=== PATIENT | male | born 1955 | race Caucasian/White ===

== ENCOUNTER 2017-01-23 01:19 | Emergency (ER) | payer OTHER ==
[2017-01-23 02:24] VITALS: BP 130/87; PULSE 71; TEMP 97.5; BMI 31.0
--- NOTE | 2017-01-23 02:35 | PDOC ---
History of Present Illness - General History Source: Patient Exam Limitations: No Limitations - History of Present Illness Initial Comments: 01/23/17 03:11 The patient is a 61 year old male with a significant PMH of kidney stones, prostate CA (finished RT 2 months ago), cardiac arrhythmia, HTN, diverticulitis , and polyp removal who presents to the emergency department with worsening abdominal pain beginning approximately 3 days ago. The patient describes the pain as localized in the subumbilical region with no radiation. The patent reports that his abdominal pain feels similar to a previous episode wherein he had a prostate infection. The patient reports that this episode feels different from his kidney stones in the past as he denies dysuria. The patient also reports lower back pain which is aggravated by lying down. He reports taking Tylenol for his abdominal and back pain to minimal relief. The patient denies chest pain, shortness of breath, headache and dizziness. Denies fever, chills, nausea, vomit, diarrhea and constipation. Denies dysuria, frequency, urgency and hematuria. Allergies: NKA Past surgical history: Polyp removal. Social history: No reported cigarette, alcohol, or drug use. PCP: Dr. Jenkins <Serg Payne - Last Filed: 01/23/17 03:24> <Lelia Pro - Last Filed: 01/23/17 05:38> - General Chief Complaint: Pain, Acute Stated Complaint: ABD/BACK PAIN Time Seen by Provider: 01/23/17 02:35 Past History <Serg Payne - Last Filed: 01/23/17 03:24> - Past Medical History Anemia: No Asthma: No Cancer: No Cardiac Disorders: Yes (arrhythmia) CVA: No COPD: No CHF: No Dementia: No Diabetes: No GI Disorders: Yes (DIVERTICULITIS) Disorders: Yes (kidney stones, BPH) HTN: Yes Hypercholesterolemia: Yes Liver Disease: No Seizures: No Thyroid Disease: No - Surgical History Abdominal Surgery: No Appendectomy: No Cardiac Surgery: No Cholecystectomy: No Lung Surgery: No Neurologic Surgery: No Orthopedic Surgery: No - Immunization History Immunization Up to Date: Yes - Suicide/Smoking/Psychosocial Hx Smoking History: Never smoked Have you smoked in the past 12 months: No Information on smoking cessation initiated: No Hx Alcohol Use: No Drug/Substance Use Hx: No Substance Use Type: None Hx Substance Use Treatment: No <Lelia Pro - Last Filed: 01/23/17 05:38> - Past Medical History Allergies/Adverse Reactions: Allergies Allergy/AdvReac Type Severity Reaction Status Date / Time No Known Allergies Allergy Verified 01/23/17 02:20 Home Medications: Ambulatory Orders Aspirin [Aspirin EC] 325 mg PO DAILY 11/06/14 Cyclobenzaprine HCl [Flexeril] 5 mg PO TID #15 tablet 11/06/14 Ibuprofen [Motrin -] 400 mg PO QID PRN #28 tablet 11/06/14 Losartan Potassium 100 mg PO DAILY 11/06/14 Losartan Potassium 100 mg PO DAILY #30 tablet 06/30/15 Metoprolol Tartrate [Lopressor -] 25 mg PO BID #60 tablet 06/30/15 Ibuprofen [Motrin -] 600 mg PO TID PRN #21 tablet 01/23/17 Tamsulosin HCl [Flomax] 0.4 mg PO HS #14 cap.er.24h 01/23/17 Review of Systems - Review of Systems Able to Perform ROS?: Yes Comments:: 01/23/17 03:11 GENERAL/CONSTITUTIONAL: No fever or chills. No weakness. HEAD, EYES, EARS, NOSE AND THROAT: No change in vision. No ear pain or discharge. No sore throat. CARDIOVASCULAR: No chest pain or shortness of breath. RESPIRATORY: No cough, wheezing, or hemoptysis. GASTROINTESTINAL: (+) Subumbilical abdominal pain. No nausea, vomiting, diarrhea or constipation. GENITOURINARY: No dysuria, frequency, or change in urination. MUSCULOSKELETAL: (+) Lower back pain. No joint pain. No neck pain. SKIN: No rash NEUROLOGIC: No headache, vertigo, loss of consciousness, or change in strength/ sensation. ENDOCRINE: No increased thirst. No abnormal weight change. HEMATOLOGIC/LYMPHATIC: No anemia, easy bleeding, or history of blood clots. ALLERGIC/IMMUNOLOGIC: No hives or skin allergy. <Serg Payne - Last Filed: 01/23/17 03:24> *Physical Exam - Vital Signs Last Vital Signs Temp Pulse Resp BP Pulse Ox 97.5 F L 71 14 130/87 97 01/23/17 02:21 01/23/17 02:21 01/23/17 02:21 01/23/17 02:21 01/23/17 02:21 <Serg Payne - Last Filed: 01/23/17 03:24> - Vital Signs Last Vital Signs Temp Pulse Resp BP Pulse Ox 97.5 F L 71 14 130/87 97 01/23/17 02:21 01/23/17 02:21 01/23/17 02:21 01/23/17 02:21 01/23/17 02:21 - Physical Exam Comments: GENERAL: Awake, alert, and fully oriented, in no acute distress HEAD: No signs of trauma EYES: PERRLA, EOMI, sclera anicteric, conjunctiva clear ENT: Auricles normal inspection, hearing grossly normal, nares patent, oropharynx clear without exudates. Moist mucosa NECK: Normal ROM, supple, no lymphadenopathy, JVD, or masses LUNGS: Breath sounds equal, clear to auscultation bilaterally. No wheezes, and no crackles HEART: Regular rate and rhythm, normal S1 and S2, no murmurs, rubs or gallops ABDOMEN: Soft, +suprapubic tenderness, normoactive bowel sounds. No guarding, no rebound. No masses. No CVAT. EXTREMITIES: Normal range of motion, no edema. No clubbing or cyanosis. No cords, erythema, or tenderness NEUROLOGICAL: Cranial nerves II through XII grossly intact. Normal speech, normal gait SKIN: Warm, Dry, normal turgor, no rashes or lesions noted. <Lelia Pro - Last Filed: 01/23/17 05:38> Medical Decision Making - Medical Decision Making 01/23/17 04:55 Results d/w patient. Small R kidney stone. No signs of UTI on UA. Will prescribe motrin and flomax. Stable for DC home. <Lelia Pro - Last Filed: 01/23/17 05:38> *DC/Admit/Observation/Transfer - Attestations Scribe Attestion: 01/23/17 03:24 Documentation prepared by Serg Payne, acting as medical claims representative for Lelia Pro MD. <Serg Payne - Last Filed: 01/23/17 03:24> - Discharge Dispostion Admit: No <Lelia Pro - Last Filed: 01/23/17 05:38> Diagnosis at time of Disposition: Kidney stone on right side - Discharge Dispostion Disposition: HOME Condition at time of disposition: Stable - Prescriptions Prescriptions: Ibuprofen [Motrin -] 600 mg PO TID PRN #21 tablet PRN Reason: Pain Tamsulosin HCl [Flomax] 0.4 mg PO HS #14 cap.er.24h - Referrals Referrals: Ezequiel Jenkins MD [Primary Care Provider] - - Patient Instructions Printed Discharge Instructions: DI for Kidney Stones - Post Discharge Activity Forms/Work/School Notes: Back to Work
[2017-01-23 03:03] LABS: URINE APPEARANCE CLEAR; URINE BILIRUBIN NEGATIVE (NEGATIVE); URINE BLOOD NEGATIVE (NEGATIVE); URINE COLOR LTYELLOW; URINE GLUCOSE (UA) NEGATIVE (NEGATIVE); URINE KETONE NEGATIVE (NEGATIVE); URINE NITRITE NEGATIVE (NEGATIVE); URINE PROTEIN NEGATIVE (NEGATIVE); URINE UROBILINOGEN NEGATIVE mg/dL (0.2-1.0)
[2017-01-23] MEDS ORDERED: IBUPROFEN 600 MG TABLET (FP) PO ONE ×2 (03:10→04:29)
[2017-01-23 10:51] LABS: URINE LEUK ESTERASE Negative (NEGATIVE)
== END 2017-01-23 05:01 | disposition home or self-care (01) ==
LOC: JER 01:19
DX: N20.0 Calculus of kidney (principal); Z87.442 Personal history of urinary calculi; I10 Essential (primary) hypertension; I49.8 Other specified cardiac arrhythmias; Z85.46 Personal history of malignant neoplasm of prostate
CPT/HCPCS: 74176; 81003; 87086; 99281-25

== ENCOUNTER 2019-08-20 20:00 | Observation (INO) | payer OTHER ==
--- NOTE | 2019-08-20 20:13 | PDOC ---
Rapid Medical Evaluation Chief Complaint: Palpitations Time Seen by Provider: 08/20/19 20:09 Medical Evaluation: Allergies Allergy/AdvReac Type Severity Reaction Status Date / Time No Known Allergies Allergy Verified 01/23/17 02:20 08/20/19 20:09 63 year old male pmhx of arrythmia, HTN, HLD pre DM presenting with palpitations since this AM. Pt states palpitations come and go and last a few minutes. Denies CP, SOB, syncope, pre syncope , N/V/D, F/C PE CTA RRR Plan: EKG at triage NSR with PVCs Cardiac and basic labs CX Pt to precede to ED
[2019-08-20 20:20] VITALS: BMI 33.5
[2019-08-20 21:18] LABS: BASO % 0.6 % (0-2.0); EOS % 3.7 % (0-4.5); HEMATOCRIT 49.4 % (35.4-49); HEMOGLOBIN 16.3 GM/dL (11.7-16.9); LYMPH % 29.3 % (8-40); MCH 31.1 pg (25.7-33.7); MCHC 33.1 g/dl (32.0-35.9); MEAN CELL VOLUME 93.9 fl (80-96); MEAN PLT VOLUME 9.4 fl (7.5-11.1); MONO % 14.1 % (3.8-10.2); NEUT % 52.3 % (42.8-82.8); PLATELET COUNT 185 K/MM3 (134-434); RBC 5.26 M/mm3 (4.00-5.60); RDW 14.5 % (11.9-15.9); WHITE BLOOD COUNT 7.3 K/mm3 (4.0-10.0)
--- NOTE | 2019-08-20 21:19 | PDOC ---
History of Present Illness - General Chief Complaint: Palpitations Stated Complaint: PALPITATIONS/HBP Time Seen by Provider: 08/20/19 20:09 - History of Present Illness Initial Comments: The pt is a 63M w/ a history of HTN, HLD, and an 'arrhythmia' who presents for evaluation of 2 days of palpitations. The pt reports intermittent palpitations that are worse with exertion and resolve spontaneously for 2 days. The pt has not had this happen before. He endorses intermittent chest pressure with his palpitations but does not currently have palpitations or pressure. Last was this afternoon. Denies fevers/chills, LOPEZ, vision changes, SOB, abdominal pain, N/V, dysuria, hematuria, rash 08/20/19 21:18 Past History - Medical History Allergies/Adverse Reactions: Allergies Allergy/AdvReac Type Severity Reaction Status Date / Time No Known Allergies Allergy Verified 01/23/17 02:20 Home Medications: Ambulatory Orders Aspirin 81 mg PO DAILY 08/20/19 Atorvastatin Ca [Lipitor] 10 mg PO HS 08/20/19 Losartan/Hydrochlorothiazide [Losartan-Hctz 100-12.5 mg Tab] 1 tablet PO DAILY 08/20/19 Cardiac Disorders: Yes (arrhythmia) GI Disorders: Yes (DIVERTICULITIS) Disorders: Yes (kidney stones, BPH) HTN: Yes Hypercholesterolemia: Yes - Substance Abuse Hx (Audit-C & DAST Scrn) Score: In Men: 4 or > Positive; In Women: 3 or > Positive: 2 Screen Result (Pos requires Nsg. Audit-10AR): Negative Score: Yes response is considered Positive: 0 Screen Result (Positive result requires Nsg. DAST-10): Negative Review of Systems - Review of Systems Able to Perform ROS?: Yes Comments:: GENERAL/CONSTITUTIONAL: No fever or chills. No weakness HEAD, EYES, EARS, NOSE AND THROAT: No change in vision. No change in hearing. No sore throat CARDIOVASCULAR: No shortness of breath RESPIRATORY: Denies cough, hemoptysis GASTROINTESTINAL: No nausea, vomiting, diarrhea or constipation GENITOURINARY: No dysuria, frequency, or change in urination MUSCULOSKELETAL: No joint or muscle swelling or pain. No neck or back pain SKIN: No rash NEUROLOGIC: No headache, vertigo, loss of consciousness, or change in str ength/sensation ENDOCRINE: No increased thirst. No abnormal weight change HEMATOLOGIC/LYMPHATIC: No anemia, easy bleeding, or history of blood clots ALLERGIC/IMMUNOLOGIC: No hives or skin allergy 08/20/19 21:33 Is the patient limited Ukrainian proficient: No *Physical Exam - Vital Signs Last Vital Signs Temp Pulse Resp BP Pulse Ox 98.5 F 95 H 20 141/95 98 08/20/19 20:08 08/20/19 20:08 08/20/19 20:08 08/20/19 20:08 08/20/19 20:08 - Physical Exam GENERAL: Awake, alert, and oriented to person/place/time, in no acute distress HEAD: No signs of trauma, normocephalic, atraumatic EYES: PERRLA, EOMI, sclera anicteric, conjunctiva clear ENT: Hearing grossly normal, nares patent, oropharynx clear without exudates. Moist mucosa LUNGS: No distress, speaks in full sentences, clear to auscultation bilaterally HEART: Regular rate and rhythm, normal S1 and S2, no murmurs appreciated, peripheral pulses normal and equal bilaterally ABDOMEN: Soft, protuberant, nontender, normoactive bowel sounds. No guarding, no rebound EXTREMITIES: Normal inspection, Normal range of motion, no edema. No clubbing or cyanosis NEUROLOGICAL: Cranial nerves II through XII grossly intact. Normal speech, no focal sensorimotor deficits SKIN: Warm, Dry 08/20/19 21:33 ED Treatment Course - LABORATORY CBC & Chemistry Diagram: 08/20/19 21:03 08/20/19 21:03 Medical Decision Making - Medical Decision Making The pt is a 63M w/ a history of HTN, HLD, and an 'arrhythmia' who presents for evaluation of 2 days of palpitations Ddx: ACS; thyroid dysfunction; anxiety; not likely ingestion ED Course CMP, CBC, Trop, TSH CXR ECG 1L LR IV once ECG w/ sinus arrhythmia, HR 82; QTc 455; no axis deviation; no acute ischemic changes No leukcytosis No anemia Lytes overall unremarkable No ZACHARY Trop I neg TSH wnl CXR w/o focal infiltrate Pt with history of HTN, HLD, age 63 with palpitations and chest pressure Will admit for Tele obs for ACS 08/21/19 03:14 Discharge - Discharge Information Problems reviewed: Yes Clinical Impression/Diagnosis: Palpitations Chest pain Qualifiers: Chest pain type: unspecified Qualified Code(s): R07.9 - Chest pain, unspecified Condition: Good - Admission Yes - Follow up/Referral - Patient Discharge Instructions - Post Discharge Activity
[2019-08-20 21:26] LABS: INR 0.91 (0.83-1.09); PROTHROMBIN TIME (PATIENT) 10.7 SEC (9.7-13.0)
[2019-08-20 21:29] LABS: ACTIVATED PTT 37.5 SECONDS (25.2-36.5)
[2019-08-20 22:00] LABS: ALK PHOS 106 U/L (45-117); ANION GAP 10 MMOL/L (8-16); BILIRUBIN,TOTAL 0.6 mg/dL (0.2-1); BLOOD UREA NITROGEN 19.1 mg/dL (7-18); CALCIUM 9.3 mg/dL (8.5-10.1); CHLORIDE 105 mmol/L (98-107); CO2 24 mmol/L (21-32); CREATININE 1.1 mg/dL (0.55-1.3); GLUCOSE,RANDOM 114 mg/dL (74-106); MAGNESIUM 2.3 mg/dL (1.8-2.4); N-TERMINAL BNP 11.3 pg/ml (5-125); POTASSIUM 3.8 mmol/L (3.5-5.1); SGOT/AST 49 U/L (15-37); SGPT/ALT 76 U/L (13-61); SODIUM 140 mmol/L (136-145); TOT PROT 7.3 g/dl (6.4-8.2)
[2019-08-20] MEDS ORDERED: LACTATED RINGERS SOLUTION 1000 ML INFUS.BAG IV ONE (22:32)
--- NOTE | 2019-08-20 22:50 | PN ---
Teaching Attending Note Name of Resident: Jozef Trevino ATTENDING PHYSICIAN STATEMENT I saw and evaluated the patient. I reviewed the resident's note and discussed the case with the resident. I agree with the resident's findings and plan as documented. SUBJECTIVE: Patient is a 63 year old [place] with a PMH of Unspecified arrhythmia, HTN, BPH, P rostate cancer, Obstructive sleep apnea (on CPAP), HLD and Prediabetes who presents to the ER with palpitations for two days. Patient stated the palpitations along with associated chest pressure are intermittent - only lasting for a few minutes at a time, and are worse upon exertion. Patient stated he is not currently experiencing palpitations or chest pressure - last episode was this afternoon. Usually does 10K walks daily, but did 20K walk today. Patient denies fever, chills, vision changes, SOB, abdominal pain, syncope, presyncope, nausea, vomiting, diarrhea, dysuria, hematuria or rash. Drinks ?2-3 glasses of wine daily with his meals. Denies tobacco or illicit drug use. No sick contacts or recent travels. Family history is unremarkable. OBJECTIVE: Alert Vital Signs Period Temp Pulse Resp BP Sys/Tucker Pulse Ox Last 24 Hr 98.5 F 95 20 141/95 98 HEENT: No Jaundice, eye redness or discharge, PERRLA, EOMI. Normocephalic, atraumatic. External ears are normal and hearing is grossly intact. No nasal discharge. Neck: Supple, nontender. No palpable adenopathy or thyromegaly. No JVD Chest: Good effort. Clear to auscultation and percussion. Heart: Regular. No S3, rub or murmur Abdomen: Not distended, soft, nontender and no HSM. No rebound or guarding. Normal bowel sounds. Ext: Peripheral pulses intact. No leg edema. Skin: Warm and dry. No petechiae, rash or ecchymosis. Neuro: Alert. Oriented x3. CN 2-12 grossly intact. Sensation grossly intact in all four extremities and DTR are symmetric. Psych: Appropriate mood and affect. Good insight. Home Medications Medication Instructions Recorded Aspirin [Aspirin EC] 325 mg PO DAILY 11/06/14 Cyclobenzaprine HCl [Flexeril] 5 mg PO TID #15 tablet 11/06/14 Ibuprofen [Motrin -] 400 mg PO QID PRN #28 tablet 11/06/14 Losartan Potassium 100 mg PO DAILY 11/06/14 Losartan Potassium 100 mg PO DAILY #30 tablet 06/30/15 Metoprolol Tartrate [Lopressor -] 25 mg PO BID #60 tablet 06/30/15 Ibuprofen [Motrin -] 600 mg PO TID PRN #21 tablet 01/23/17 Tamsulosin HCl [Flomax] 0.4 mg PO HS #14 cap.er.24h 01/23/17 Abnormal Lab Results 08/20/19 08/20/19 08/20/19 21:03 21:03 21:03 Hct 49.4 H Monocytes % 14.1 H PTT (Actin FS) 37.5 H BUN 19.1 H Random Glucose 114 H AST 49 H ALT 76 H Creatine Kinase 347 H Current Medications Generic Name Dose Route Start Last Admin Trade Name Freq PRN Reason Stop Dose Admin Enoxaparin Sodium 40 mg 08/21/19 10:00 Lovenox - SQ DAILY MITCHEL Sodium Chloride 1,000 mls @ 100 mls/hr 08/21/19 00:15 Normal Saline - IV ASDIR MITCHEL ASSESSMENT AND PLAN: 1. Rule out ACS - Has risk factors for ACS. Etiology of palpitations unclear. Increasing his daily walks from 10K to 20K on a day with outside temperatures close to 90o F may have contributed to his symptoms. May be dehydrated with mild rhabdomyolysis and erythrocytosis - ?heat stroke. EKG shows sinus arrhythmia at 82/minute and QTc [address]-T wave changes. Initial troponin is negative. No acute abnormality on CXR. Will admit to telemetry, get urinalysis, trend troponin, get ECHO, urine toxicology, fasting lipids, treat with IV NS, trend CPK and consult Cardiology. Patient counseled to avoid intensive physical activity when it is very hot outside. Viral testing for COVID-19 ordered and patient placed on airborne, droplet and contact isolation. Will continue comprehensive care for all of patients comorbid conditions including Flomax for BPH. 2. Prediabetes - Will implement sliding scale insulin regimen. Provide comprehensive diabetes care with patient teaching and counseling about the importance of adherence to prescribed diabetes regimen, euglycemia, eye care and foot care. 3. Hypertension Will restart suitable outpatient antihypertensive drugs when clinically appropriate. Subsequently, will revise regimen to ensure [id number] excellent BP control. Patient counseled on the injurious effects of uncontrolled hypertension. Nonpharmacologic measures to control hypertension like weight loss, salt restriction and exercise stressed. Importance of adherence to treatment regimen and attainment of normotension emphasized. 4. Obesity Counseled on the risks associated with obesity. Will provide patient all the necessary assistance, counseling and positive reinforcement to facilitate weight loss. Consult american board certified orthotist. 5. DVT prophylaxis - Lovenox 40 mg SQ q 24 hours. 6. Advance directives - Full code
--- NOTE | 2019-08-20 23:35 | HP ---
CHIEF COMPLAINT: palpitations PCP: Sandoval HISTORY OF PRESENT ILLNESS: 63M w/ pmh of HTN, HLD, pre-DM, arrhythmias(dx 4ys prior), PILI(nightly CPAP), prostate Ca(s/p RT, 3ys pior) presents to [facility] for complaint of "irregular heart" that feelings like it's "speeding up". First occurrence of chest palpitations occurred the day prior to admission, after a 20k morning walk. Normally walks 10k daily. Sensation lasted 20mins and resolved spontaneously. He attributed it to the heat. Had recurrence today in the afternoon, while at rest. Took his BP at home and saw SBP ~170s and reading of "abnormal" rate. Sensation resolved after 10mins. Decided to get evaluated in the ED. Has been diagnosed w/ an unspecified arrhythmia 4ys ago. Was told to take ASA 81mg daily. Drinks a "few" glasses of wine with meals(lunch, dinner) since he was ~21y/o, which he states is normal for his culture([place]). Denies excessive caffeine usage, drinking only decaf occasionally. No new life stressors. Retired 3mo ago from [employer]. was vacatioining in [place] and blocked from [place] d/t the ongoing COVID pandemic. Has been social distancing. ER course was notable for: (1) LR 1L (2) EKG: sinus rhytm w/ frequent PVCs, no ST elevations/depressions, QTc 455 (3) HEART 4 (4) troponin neg x1 Recent Travel: denies. Was going to see the world after [facility], but COVID PAST MEDICAL HISTORY: as above PAST SURGICAL HISTORY: Right elbow surgery Social History: Smoking: denies Alcohol: 2glasses wine w/ meals(lunch, dinner) Drugs: denies Allergies No Known Allergies Allergy (Verified 01/23/17 02:20) HOME MEDICATIONS: Home Medications Medication Instructions Recorded Aspirin 81 mg PO DAILY 08/20/19 Atorvastatin Ca [Lipitor] 10 mg PO HS 08/20/19 Losartan/Hydrochlorothiazide 1 tablet PO DAILY 08/20/19 [Losartan-Hctz 100-12.5 mg Tab] REVIEW OF SYSTEMS CONSTITUTIONAL: Absent: fever, chills, diaphoresis, generalized weakness, malaise, loss of appetite, weight change HEENT: Absent: rhinorrhea, nasal congestion, throat pain, throat swelling, difficulty swallowing, mouth swelling, ear pain, eye pain, visual changes CARDIOVASCULAR: palpitations, irregular heart rate Absent: chest pain, syncope, lightheadedness, peripheral edema RESPIRATORY: Absent: cough, shortness of breath, dyspnea with exertion, orthopnea, wheezing, stridor, hemoptysis GASTROINTESTINAL: Absent: abdominal pain, abdominal distension, nausea, vomiting, diarrhea, constipation, melena, hematochezia GENITOURINARY: Absent: dysuria, frequency, urgency, hesitancy, hematuria, flank pain, genital pain MUSCULOSKELETAL: Absent: myalgia, arthralgia, joint swelling, back pain, neck pain SKIN: Absent: rash, itching, pallor HEMATOLOGIC/IMMUNOLOGIC: Absent: easy bleeding, easy bruising, lymphadenopathy, frequent infections ENDOCRINE: Absent: unexplained weight gain, unexplained weight loss, heat intolerance, cold intolerance NEUROLOGIC: Absent: headache, focal weakness or paresthesias, dizziness, unsteady gait, seizure, mental status changes, bladder or bowel incontinence PSYCHIATRIC: Absent: anxiety, depression, suicidal or homicidal ideation, hallucinations. PHYSICAL EXAMINATION Vital Signs - 24 hr 08/20/19 20:08 Temperature 98.5 F Pulse Rate 95 H Respiratory 20 Rate Blood Pressure 141/95 O2 Sat by Pulse 98 Oximetry (%) GENERAL: Awake, alert, and fully oriented, in no acute distress. Pleasant HEAD: NC/AT EYES: sclera anicteric, conjunctiva clear. EARS, NOSE, THROAT: Moist mucous membranes. NECK: supple without lymphadenopathy, JVD, or masses. LUNGS: Breath sounds equal, clear to auscultation bilaterally. No wheezes, and no crackles. No accessory muscle use. HEART: Regular rate and rhythm, normal S1 and S2 without murmur, rub or gallop. ABDOMEN: Soft, nontender, not distended, no guarding, no rebound MUSCULOSKELETAL: Normal range of motion at all joints. No bony deformities or tenderness. UPPER EXTREMITIES: 2+ pulses, warm, well-perfused. No cyanosis. No clubbing. No peripheral edema. LOWER EXTREMITIES: 2+ pulses, warm, well-perfused. No calf tenderness. No peripheral edema. NEUROLOGICAL: Normal speech. Moving all extremities spontaneously Laboratory Results - last 24 hr 08/20/19 08/20/19 08/20/19 21:03 21:03 21:03 WBC 7.3 RBC 5.26 Hgb 16.3 Hct 49.4 H MCV 93.9 MCH 31.1 MCHC 33.1 RDW 14.5 Plt Count 185 MPV 9.4 Absolute Neuts (auto) 3.8 Neutrophils % 52.3 Lymphocytes % 29.3 Monocytes % 14.1 H Eosinophils % 3.7 Basophils % 0.6 Nucleated RBC % 0 PT with INR 10.70 INR 0.91 PTT (Actin FS) 37.5 H Sodium 140 Potassium 3.8 Chloride 105 Carbon Dioxide 24 Anion Gap 10 BUN 19.1 H Creatinine 1.1 Est GFR (CKD-EPI)AfAm 82.95 Est GFR (CKD-EPI)NonAf 71.57 Random Glucose 114 H Calcium 9.3 Magnesium 2.3 Total Bilirubin 0.6 AST 49 H ALT 76 H Alkaline Phosphatase 106 Creatine Kinase 347 H Creatine Kinase Index 0.4 CK-MB (CK-2) 1.6 Troponin I < 0.02 B-Natriuretic Peptide 11.3 Total Protein 7.3 Albumin 4.0 TSH 1.81 ASSESSMENT/PLAN: 63M w/ pmh of HTN, HLD, pre-DM, arrhythmias(dx 4ys prior), PILI(nightly CPAP), prostate Ca(s/p RT, 3ys pior) presents to [facility] for complaint of "irregular heart" that feelings like it's "speeding up". Admitted for symptomatic PVCs, ACS r/o. #h/o "arrhythmias" #symptomatic PVCs --nonsustained ---possibly 2/2 to chronic EtOH usage, Right heart path 2/2 PILI, recent incr in physical activity during heatwave #ACS r/o --low likelihood for ACS > EKG: sinus rhytm w/ frequent PVCs, no ST elevations/depressions, QTc 455 > troponing neg x1 --rpt troponin > Echo --pending - tele monitoring - cw ASA - cardio consult(Gitig): --recs pending #chronic HTN -cw losartan 100 -cw HCTZ 12.5mg #chronic HLD -cw atorvastatin 10mg HS #PILI - cw CPAP HS(?8mmHg) #pre-DM > HbA1c --pending - BGM ACBK FEN - NPO, incase of stress test - NS @100 DVT PPX - lovenox Family Medical History Other Family History: uncle with [place] Visit type - Emergency Visit Emergency Visit: Yes ED Registration Date: 08/20/19 Care time: The patient presented to the Emergency Department on the above date and was hospitalized for further evaluation of their emergent condition. - New Patient This patient is new to me today: Yes Date on this admission: 08/21/19 - Critical Care Critical Care patient: No ATTENDING PHYSICIAN STATEMENT I saw and evaluated the patient. I reviewed the resident's note and discussed the case with the resident. I agree with the resident's findings and plan as documented. SUBJECTIVE: OBJECTIVE: ASSESSMENT AND PLAN:
[2019-08-21] MEDS ORDERED: SODIUM CHLORIDE 1,000 ML IV SCH (00:15)
--- NOTE | 2019-08-21 00:56 | PDOC ---
Documentation entered by Alile Steele SCRIBE, acting as scribe for Kaya Ruiz MD. Kaya Ruiz MD: This documentation has been prepared by the Cedric turner Ana, SCRIBE, under my direction and personally reviewed by me in its entirety. I confirm that the documentation accurately reflects all work, treatment, procedures, and medical decision making performed by me. Attending Attestation - Resident Resident Name: SuhailsathyaSolomon - ED Attending Attestation I have performed the following: I have examined & evaluated the patient, The case was reviewed & discussed with the resident, I agree w/resident's findings & plan, Exceptions are as noted - HPI HPI: 08/20/19 20:57 Patient is a 63 year old male with a significant past medical history of arrythmia, HTN, HLD, and pre DM who presents to the ED with palpitations x2 days. Patient stated the palpitations along with associated chest pressure are intermittent, only last for a few minutes at a time, and are worse upon exertion. Patient stated he is not currently experiencing palpitations or chest pressure - last episode was this afternoon. no leg swelling or edema. no ho pe or dvt. Patient denies fever, chills, vision changes, SOB, abdominal pain, syncope, pre syncope, N/V/D, Allergies: NKDA 08/21/19 00:44 - Physicial Exam PE: 08/21/19 00:46 awake alert lungs clear bilat heart rrr no mrg abd soft nt nd ext wwp. no edema. no calf tenderness. alert oriented x 3. - Medical Decision Making 08/21/19 00:48 63 yo male h/o htn hld pre diabetic here with palpitations and chest pain. differential electrolyte abnormality, angina, mi, dysrhythmia, plan cxr labs ekg ekg with occasional irregular beat. no st elevation or depression cxr no acute disease process occas pvc. 08/21/19 00:54 trop negative. mild lft elevation. Heart Score/ECG Review #1 General ECG Interpretation: Sinus Rhythm, Normal Rate (82), Normal Intervals, No acute ischemic changes Discharge - Discharge Information Problems reviewed: Yes Clinical Impression/Diagnosis: Palpitations, Chest pain - Follow up/Referral - Patient Discharge Instructions - Post Discharge Activity
[2019-08-21 03:47] LABS: PH,URINE 5.5 (5.0-8.0); URINE APPEARANCE CLEAR; URINE BILIRUBIN NEGATIVE (NEGATIVE); URINE COLOR YELLOW; URINE GLUCOSE (UA) NEGATIVE (NEGATIVE); URINE KETONE NEGATIVE (NEGATIVE); URINE LEUK ESTERASE NEGATIVE (NEGATIVE); URINE NITRITE NEGATIVE (NEGATIVE); URINE PROTEIN NEGATIVE (NEGATIVE); URINE UROBILINOGEN 0.2 mg/dL (0.2-1.0)
[2019-08-21 08:09] LABS: HEMATOCRIT 48.2 % (35.4-49); HEMOGLOBIN 16.1 GM/dL (11.7-16.9); MCH 31.2 pg (25.7-33.7); MCHC 33.4 g/dl (32.0-35.9); MEAN CELL VOLUME 93.3 fl (80-96); MEAN PLT VOLUME 9.2 fl (7.5-11.1); PLATELET COUNT 191 K/MM3 (134-434); RBC 5.16 M/mm3 (4.00-5.60); RDW 14.9 % (11.9-15.9); WHITE BLOOD COUNT 6.6 K/mm3 (4.0-10.0)
[2019-08-21 08:23] LABS: BLOOD UREA NITROGEN 14.7 mg/dL (7-18); CALCIUM 9.1 mg/dL (8.5-10.1); CREATININE 0.9 mg/dL (0.55-1.3); MAGNESIUM 2.4 mg/dL (1.8-2.4); PHOSPHOROUS 3.4 mg/dL (2.5-4.9); POTASSIUM 4.2 mmol/L (3.5-5.1)
[2019-08-21] MEDS ORDERED: ENOXAPARIN NA (PORCINE) 40 MG/0.4 ML DISP.SYRIN SQ ONE (09:12)
[2019-08-21] MEDS ORDERED: ASPIRIN 81 MG CHEWABLE TABLETS ONE (09:12)
[2019-08-21] MEDS ORDERED: LOSARTAN POTASSIUM 50 MG TABLET (FP) ONE (09:12)
[2019-08-21] MEDS ORDERED: ENOXAPARIN NA (PORCINE) 40 MG/0.4 ML DISP.SYRIN SQ SCH (10:00)
[2019-08-21] MEDS ORDERED: ASPIRIN 81 MG CHEWABLE TABLETS PO SCH (10:00)
[2019-08-21] MEDS ORDERED: HYDROCHLOROTHIAZIDE 12.5 MG CAPSULE (FP) PO SCH (10:00)
[2019-08-21] MEDS ORDERED: LOSARTAN POTASSIUM 50 MG TABLET (FP) PO SCH (10:00)
--- NOTE | 2019-08-21 11:59 | EKG ---
Test Reason : Blood Pressure : / mmHG Vent. Rate : 082 BPM Atrial Rate : 082 BPM P-R Int : 172 ms QRS Dur : 098 ms QT Int : 390 ms P-R-T Axes : 050 023 032 degrees QTc Int : 455 ms SINUS RHYTHM WITH FREQUENT PREMATURE VENTRICULAR COMPLEXES OTHERWISE NORMAL ECG WHEN COMPARED WITH ECG OF 30-JUN-2015 11:29, PREMATURE VENTRICULAR COMPLEXES ARE NOW PRESENT QT HAS LENGTHENED Confirmed by MINESH BAUTISTA, ERIN ([id number]) on 08/21/2019 11:58:47 AM Referred By: Confirmed By:ERIN EDGE MD
[2019-08-21 12:13] LABS: ALBUMIN 3.8 g/dl (3.4-5.0); BILIRUBIN,DIRECT 0.2 mg/dL (0.0-0.2); BILIRUBIN,TOTAL 0.9 mg/dL (0.2-1)
--- NOTE | 2019-08-21 13:16 | PN ---
Teaching Attending Note Name of Resident: Lexus Washington ATTENDING PHYSICIAN STATEMENT I saw and evaluated the patient. I reviewed the resident's note and discussed the case with the resident. I agree with the resident's findings and plan as documented. SUBJECTIVE: He declines any pain in chest right now. No N/V. NO SOB . He reports, extra walking in the hot weather. He reports palpitations. that are some times associated with chest pressure but no radiation to arm or neck. he reports a stress test 2 months ago. He was told it was Normal OBJECTIVE: NAD , awake , alert, cooperative MMM, was eating . CV: RRR, no MRG Lungs: CTAB Abd: soft, NT, ND , NL BS , obese. Ext : No edema or erythema . ASSESSMENT AND PLAN: 63 y/o man with h/o PILI, on CPAP, pre-Dm, arrhythmias, HTN, BPH, and prostate cancer who presented with palpitations . 1- Palpitations : ? sinus tachycardia VS arrhytmias volume depletion could be playing a role. EKG with sinus rhythm, with PVC. I doubt ACS. he has h/o Arrhythmias but he does not know what kind. - cont tele - Give IVF. - will try to obtain Stress test results - echo pending - Chest pain resolved 2- volume depletion /prerenal azotemia, /possible heat stroke./ possible mild rhabdo - cont IVF . BUN improved 3- Transaminitis: likely has fatty liver, and now with mild rhabdo LFTs are elevated . trended down . No abd pain or tenderness. - monitor . 4- H/o PILI. - will add his CPAP with a pressure of 8 dispo : if no events on tele by am, can dc .
--- NOTE | 2019-08-21 14:04 | ECHO ---
Name: MAHAD ALMONTE Exam:Adult Echocardiogram Study Date: 08/21/2019 11:45 AM Age: 63 yrs Reason For Study: r/o ACS Height: 69 in Weight: 227 lb BSA: 2.2 m2 MMode/2D Measurements & Calculations RVDd: 4.3 cm Ao root diam: 3.6 cm IVSd: 0.78 cm LA dimension: 3.5 cm LVIDd: 4.8 cm ACS: 1.8 cm LVIDs: 3.4 cm LVPWd: 0.87 cm EDV(Teich): 109.8 ml LVOT diam: 2.0 cm ESV(Teich): 47.6 ml LAV (MOD-bp): 40.0 ml TAPSE: 2.1 cm RV S Harry: 12.5 cm/sec Doppler Measurements & Calculations MV E max harry: 56.3 cm/sec Ao V2 max: 130.3 cm/sec MV A max harry: 65.6 cm/sec Ao max P.8 mmHg MV E/A: 0.86 Ao V2 mean: 88.4 cm/sec MV dec time: 0.22 sec Ao mean P.5 mmHg Ao V2 VTI: 23.0 cm KELSEY(I,D): 2.4 cm2 KELSEY(V,D): 2.1 cm2 LV V1 max P.3 mmHg SV(LVOT): 54.6 ml LV V1 mean P.6 mmHg LV V1 max: 90.8 cm/sec LV V1 mean: 56.1 cm/sec LV V1 VTI: 18.0 cm TR max harry: 226.7 cm/sec PA V2 max: 118.1 cm/sec TR max P.6 mmHg PA max P.6 mmHg PA acc slope: 537.4 cm/sec2 PA acc time: 0.15 sec Med Peak E' Harry: 5.8 cm/sec PA pr(Accel): 12.5 mmHg Med E/e': 9.8 Lat Peak E' Harry: 9.5 cm/sec Lat E/e': 6.0 Pulm Sys Harry: 49.8 cm/sec Pulm Tucker Harry: 33.8 cm/sec Pulm S/D: 1.5 Tech Comments TDS due to body habitus. Procedure A complete two-dimensional transthoracic echocardiogram was performed (2D, M-mode, Doppler and color flow Doppler). Left Ventricle The left ventricular size, thickness and function are normal. Ejection Fraction = 60-65%. The left ve ntricular wall motion is normal. Right Ventricle The right ventricle is normal in size and function. Atria Normal left and right atrial size and function. Mitral Valve There is no mitral regurgitation noted. Tricuspid Valve There is trace tricuspid regurgitation. Right ventricular systolic pressure is normal. Aortic Valve The aortic valve is trileaflet. No hemodynamically significant valvular aortic stenosis. No aortic regurgitation is present. Pulmonic Valve There is no pulmonic valvular regurgitation. Great Vessels The aortic root is normal size. Pericardium/Pleura There is no pericardial effusion. Interpretation Summary The left ventricular size, thickness and function are normal The right ventricle is normal in size and function. There is trace tricuspid regurgitation. MD Sagar Tierney 08/21/2019 02:03 PM
--- NOTE | 2019-08-21 14:13 | CON.CARD ---
Cardiology Consult (text) - Consultation Consultation Note: cc: palps hpi: 63 m hx htn, hld, here with palps. Past 2 days intermittent feeling of strong heart beats. No cp sob dizzy loc pnd orthopnea le edema. Last night palps resolved, feeling well now. Does a lot of exercise, no anginal sxs. pmh: per hpi psh: elbow surgery social: no tob fam: no premature cad, scd ros: per hpi; all others nl meds: Home Medications Medication Instructions Recorded Aspirin 81 mg PO DAILY 08/20/19 Atorvastatin Ca [Lipitor] 10 mg PO HS 08/20/19 Losartan/Hydrochlorothiazide 1 tablet PO DAILY 08/20/19 [Losartan-Hctz 100-12.5 mg Tab] pe: Vital Signs Period Temp Pulse Resp BP Sys/Tucker Pulse Ox Last 24 Hr 98.3 F-98.5 F 63-95 18-20 122-141/72-95 97-98 nad no jvd rrr s1s2 no mrg cta bl nl eff aao3 no le e/c/c abd nt nd pos bs no jaundice diaphoresis pos dp pt no carotid bruits Laboratory Last Values WBC 6.6 K/mm3 (4.0-10.0) 08/21/19 07:08 RBC 5.16 M/mm3 (4.00-5.60) 08/21/19 07:08 Hgb 16.1 GM/dL (11.7-16.9) 08/21/19 07:08 Hct 48.2 % (35.4-49) 08/21/19 07:08 MCV 93.3 fl (80-96) 08/21/19 07:08 MCH 31.2 pg (25.7-33.7) 08/21/19 07:08 MCHC 33.4 g/dl (32.0-35.9) 08/21/19 07:08 RDW 14.9 % (11.9-15.9) 08/21/19 07:08 Plt Count 191 K/MM3 (134-434) 08/21/19 07:08 MPV 9.2 fl (7.5-11.1) 08/21/19 07:08 Absolute Neuts (auto) 3.8 K/mm3 (1.5-8.0) 08/20/19 21:03 Neutrophils % 52.3 % (42.8-82.8) 08/20/19 21:03 Lymphocytes % 29.3 % (8-40) 08/20/19 21:03 Monocytes % 14.1 % (3.8-10.2) H 08/20/19 21:03 Eosinophils % 3.7 % (0-4.5) 08/20/19 21:03 Basophils % 0.6 % (0-2.0) 08/20/19 21:03 Nucleated RBC % 0 % (0-0) 08/20/19 21:03 PT with INR 10.70 SEC (9.7-13.0) 08/20/19 21:03 INR 0.91 (0.83-1.09) 08/20/19 21:03 PTT (Actin FS) 37.5 SECONDS (25.2-36.5) H 08/20/19 21:03 Sodium 140 mmol/L (136-145) 08/21/19 07:08 Potassium 4.2 mmol/L (3.5-5.1) 08/21/19 07:08 Chloride 105 mmol/L (98-107) 08/21/19 07:08 Carbon Dioxide 28 mmol/L (21-32) 08/21/19 07:08 Anion Gap 7 MMOL/L (8-16) L 08/21/19 07:08 BUN 14.7 mg/dL (7-18) 08/21/19 07:08 Creatinine 0.9 mg/dL (0.55-1.3) 08/21/19 07:08 Est GFR (CKD-EPI)AfAm 105.72 08/21/19 07:08 Est GFR (CKD-EPI)NonAf 91.22 08/21/19 07:08 POC Glucometer 104 UNITS (80-120) 08/21/19 13:04 Random Glucose 115 mg/dL (74-106) H 08/21/19 07:08 Hemoglobin A1c % 5.7 % (4.2-6.3) 08/21/19 07:08 Calcium 9.1 mg/dL (8.5-10.1) 08/21/19 07:08 Phosphorus 3.4 mg/dL (2.5-4.9) 08/21/19 07:08 Magnesium 2.4 mg/dL (1.8-2.4) 08/21/19 07:08 Total Bilirubin 0.9 mg/dL (0.2-1) 08/21/19 07:08 Direct Bilirubin 0.2 mg/dL (0.0-0.2) 08/21/19 07:08 AST 38 U/L (15-37) H 08/21/19 07:08 ALT 67 U/L (13-61) H 08/21/19 07:08 Alkaline Phosphatase 81 U/L (45-117) 08/21/19 07:08 Creatine Kinase 347 U/L (26-308) H 08/20/19 21:03 Creatine Kinase Index 0.4 % (0.0-5.0) 08/20/19 21:03 CK-MB (CK-2) 1.6 ng/mL (0.5-3.6) 08/20/19 21:03 Troponin I < 0.02 ng/ml (0.00-0.05) 08/21/19 03:20 B-Natriuretic Peptide 11.3 pg/ml (5-125) 08/20/19 21:03 Total Protein 7.0 g/dl (6.4-8.2) 08/21/19 07:08 Albumin 3.8 g/dl (3.4-5.0) 08/21/19 07:08 Triglycerides 103 mg/dL (0-150) 08/21/19 07:08 Cholesterol 193 mg/dL (50-200) 08/21/19 07:08 Total LDL Cholesterol 115 mg/dL (5-100) H 08/21/19 07:08 HDL Cholesterol 61 mg/dL (40-60) H 08/21/19 07:08 TSH 1.81 uIU/ml (0.358-3.74) 08/20/19 21:03 Urine Color Yellow 08/21/19 03:20 Urine Appearance Clear 08/21/19 03:20 Urine pH 5.5 (5.0-8.0) 08/21/19 03:20 Ur Specific [place] 1.013 (1.010-1.035) 08/21/19 03:20 Urine Protein Negative (NEGATIVE) 08/21/19 03:20 Urine Glucose (UA) Negative (NEGATIVE) 08/21/19 03:20 Urine Ketones Negative (NEGATIVE) 08/21/19 03:20 Urine Blood Negative (NEGATIVE) 08/21/19 03:20 Urine Nitrite Negative (NEGATIVE) 08/21/19 03:20 Urine Bilirubin Negative (NEGATIVE) 08/21/19 03:20 Urine Urobilinogen 0.2 mg/dL (0.2-1.0) 08/21/19 03:20 Ur Leukocyte Esterase Negative (NEGATIVE) 08/21/19 03:20 cxr: clear lungs ecg: sr, pvcs, nl intervals, no iscehmic changes tele: sr a/p: 63 m hx htn, hld, here with palps. palps: -no signs acs, chf -tsh wnl -echo unremarkable -ecg showing pvcs, possible cause of palps. these are benign given nl echo here. monitor as outpt would start bb if his sxs persisted in future. htn: -cont home med hld: -cont statin cardiac manuel stable for dc
--- NOTE | 2019-08-21 16:29 | DS ---
Physical Exam: SUBJECTIVE: Patient seen and examined OBJECTIVE: Vital Signs Period Temp Pulse Resp BP Sys/Tucker Pulse Ox Last 24 Hr 98.3 F-98.5 F 63-95 18-20 122-141/72-95 97-98 PHYSICAL EXAM GENERAL: The patient is awake, alert, and fully oriented, in no acute distress. HEAD: Normal with no signs of trauma. EYES: PERRL, extraocular movements intact, sclera anicteric, conjunctiva clear. ENT: Ears normal, nares patent, oropharynx clear without exudates, moist mucous membranes. NECK: Trachea midline, full range of motion, supple. LUNGS: Breath sounds equal, clear to auscultation bilaterally, no wheezes, no crackles, no accessory muscle use. HEART: Regular rate and rhythm, S1, S2 without murmur, rub or gallop. ABDOMEN: Soft, nontender, nondistended, normoactive bowel sounds, no guarding, no rebound, no hepatosplenomegaly, no masses. EXTREMITIES: 2+ pulses, warm, well-perfused, no edema. NEUROLOGICAL: Cranial nerves II through XII grossly intact. Normal speech, gait not observed. PSYCH: Normal mood, normal affect. SKIN: Warm, dry, normal turgor, no rashes or lesions noted. LABS Laboratory Results - last 24 hr 08/20/19 08/20/19 08/20/19 21:03 21:03 21:03 WBC 7.3 RBC 5.26 Hgb 16.3 Hct 49.4 H MCV 93.9 MCH 31.1 MCHC 33.1 RDW 14.5 Plt Count 185 MPV 9.4 Absolute Neuts (auto) 3.8 Neutrophils % 52.3 Lymphocytes % 29.3 Monocytes % 14.1 H Eosinophils % 3.7 Basophils % 0.6 Nucleated RBC % 0 PT with INR 10.70 INR 0.91 PTT (Actin FS) 37.5 H Sodium 140 Potassium 3.8 Chloride 105 Carbon Dioxide 24 Anion Gap 10 BUN 19.1 H Creatinine 1.1 Est GFR (CKD-EPI)AfAm 82.95 Est GFR (CKD-EPI)NonAf 71.57 POC Glucometer Random Glucose 114 H Hemoglobin A1c % Calcium 9.3 Phosphorus Magnesium 2.3 Total Bilirubin 0.6 Direct Bilirubin AST 49 H ALT 76 H Alkaline Phosphatase 106 Creatine Kinase 347 H Creatine Kinase Index 0.4 CK-MB (CK-2) 1.6 Troponin I < 0.02 B-Natriuretic Peptide 11.3 Total Protein 7.3 Albumin 4.0 Triglycerides Cholesterol Total LDL Cholesterol HDL Cholesterol TSH 1.81 Urine Color Urine Appearance Urine pH Ur Specific [place] Urine Protein Urine Glucose (UA) Urine Ketones Urine Blood Urine Nitrite Urine Bilirubin Urine Urobilinogen Ur Leukocyte Esterase 08/21/19 08/21/19 08/21/19 03:20 03:20 07:08 WBC 6.6 RBC 5.16 Hgb 16.1 Hct 48.2 MCV 93.3 MCH 31.2 MCHC 33.4 RDW 14.9 Plt Count 191 MPV 9.2 Absolute Neuts (auto) Neutrophils % Lymphocytes % Monocytes % Eosinophils % Basophils % Nucleated RBC % PT with INR INR PTT (Actin FS) Sodium Potassium Chloride Carbon Dioxide Anion Gap BUN Creatinine Est GFR (CKD-EPI)AfAm Est GFR (CKD-EPI)NonAf POC Glucometer Random Glucose Hemoglobin A1c % Calcium Phosphorus Magnesium Total Bilirubin Direct Bilirubin AST ALT Alkaline Phosphatase Creatine Kinase Creatine Kinase Index CK-MB (CK-2) Troponin I < 0.02 B-Natriuretic Peptide Total Protein Albumin Triglycerides Cholesterol Total LDL Cholesterol HDL Cholesterol TSH Urine Color Yellow Urine Appearance Clear Urine pH 5.5 Ur Specific [place] 1.013 Urine Protein Negative Urine Glucose (UA) Negative Urine Ketones Negative Urine Blood Negative Urine Nitrite Negative Urine Bilirubin Negative Urine Urobilinogen 0.2 Ur Leukocyte Esterase Negative 08/21/19 08/21/19 08/21/19 07:08 07:08 13:04 WBC RBC Hgb Hct MCV MCH MCHC RDW Plt Count MPV Absolute Neuts (auto) Neutrophils % Lymphocytes % Monocytes % Eosinophils % Basophils % Nucleated RBC % PT with INR INR PTT (Actin FS) Sodium 140 Potassium 4.2 Chloride 105 Carbon Dioxide 28 Anion Gap 7 L BUN 14.7 Creatinine 0.9 Est GFR (CKD-EPI)AfAm 105.72 Est GFR (CKD-EPI)NonAf 91.22 POC Glucometer 104 Random Glucose 115 H Hemoglobin A1c % 5.7 Calcium 9.1 Phosphorus 3.4 Magnesium 2.4 Total Bilirubin 0.9 Direct Bilirubin 0.2 AST 38 H ALT 67 H Alkaline Phosphatase 81 Creatine Kinase Creatine Kinase Index CK-MB (CK-2) Troponin I B-Natriuretic Peptide Total Protein 7.0 Albumin 3.8 Triglycerides 103 Cholesterol 193 Total LDL Cholesterol 115 H HDL Cholesterol 61 H TSH Urine Color Urine Appearance Urine pH Ur Specific [place] Urine Protein Urine Glucose (UA) Urine Ketones Urine Blood Urine Nitrite Urine Bilirubin Urine Urobilinogen Ur Leukocyte Esterase HOSPITAL COURSE: Date of Admission:08/21/19 Date of Discharge: 08/21/19 Discharge Summary Problems reviewed: Yes Reason For Visit: PALPITATION,ACUTE CORONARY SYNDROME Current Active Problems Chest pain (Acute) Palpitations (Acute) Condition: Good - Instructions Diet, Activity, Other Instructions: Hospital Visit: You came to the hospital because you felt your heart was beating fast. It was monitored, and nothing looked abnormal. An ultrasound of your heart was done which only showed a small leakage from one of the valves. You were most likely dehydrated and had palpitations. You have improved after giving you IV fluids. You are now able to go home. Medications: STOP taking the combination losartan/HCTZ START taking losartan 100mg daily CONTINUE aspirin and atorvastatin Follow up: Dr. Mcguire, primary care, in 1 week after discharge. You should have your blood pressure rechecked and may need adjustments to your medications. Dr. Tierney, cardiology, in 2 weeks after discharge. You will need to be monitored for changes in the palpitations. Other instructions: Stay hydrated when working outside in the heat. Measure your blood pressure every morning and write it down. Bring it to Dr. Mcguire's office on your next visit. Call 911 or return to the emergency room if you have chest pain, difficulty breathing, palpitations that do not resolve in a few minutes, leg swelling, or muscle cramps. your covid test is pending results. you will be called Referrals: Sagar Tierney MD [Staff Physician] - 2 Weeks Imelda Mcguire MD [Primary Care Provider] - 1 Week Disposition: HOME - Home Medications Comprehensive Discharge Medication List: Ambulatory Orders Aspirin 81 mg PO DAILY 08/20/19 Atorvastatin Ca [Lipitor] 10 mg PO HS 08/20/19 Losartan Potassium 100 mg PO DAILY #30 tablet 08/21/19 ATTENDING PHYSICIAN STATEMENT I saw and evaluated the patient. I reviewed the resident's note and discussed the case with the resident. I agree with the resident's findings and plan as documented. SUBJECTIVE: OBJECTIVE: ASSESSMENT AND PLAN:
[2019-08-21 17:05] VITALS: BP 142/75; PULSE 75; TEMP 98.4
[2019-08-21] MEDS ORDERED: ATORVASTATIN CA 10 MG TABLET (FP) PO SCH (22:00)
[2019-08-21] MEDS ORDERED: ATORVASTATIN CA 20 MG TABLET (FP) PO SCH (22:00)
== END 2019-08-21 16:15 | disposition home or self-care (01) ==
LOC: JER 20:00 → UNDOADMOB 23:01 → JERBED 23:01 → INTOOBSV 23:36 → OBSVTOIN 23:36 → JERBED 08-21 13:03
PROVIDERS: ADMIT Internal Medicine; ATTEND Internal Medicine
PROC: 3E0337Z Introduction of Electrolytic and Water Balance Substance into Peripheral Vein, Percutaneous Approach (ICD-10-PCS; principal; 2019-08-21)
DX: R00.2 Palpitations (principal); R07.9 Chest pain, unspecified; I10 Essential (primary) hypertension; E78.5 Hyperlipidemia, unspecified; I49.9 Cardiac arrhythmia, unspecified; R73.03 Prediabetes; N40.0 Benign prostatic hyperplasia without lower urinary tract symptoms; Z85.46 Personal history of malignant neoplasm of prostate; G47.33 Obstructive sleep apnea (adult) (pediatric); Z99.89 Dependence on other enabling machines and devices; E66.01 Morbid (severe) obesity due to excess calories; Z68.33 Body mass index [BMI] 33.0-33.9, adult; R79.89 Other specified abnormal findings of blood chemistry; K76.0 Fatty (change of) liver, not elsewhere classified; R74.0 Nonspecific elevation of levels of transaminase and lactic acid dehydrogenase [LDH]; Z29.9 Encounter for prophylactic measures, unspecified
CPT/HCPCS: 36415; 71046-TC-FY; 80048; 80053; 80061; 80076; 81003; 82550; 82553; 82962; 83036; 83721; 83735; 83880; 84100; 84443; 84484; 85025; 85027; 85610; 85730; 93005; 93010; 93306-TC; 99285-25; G0378; U0003

== ENCOUNTER 2019-08-30 20:38 | Emergency (ER) | payer OTHER ==
[2019-08-30 20:50] VITALS: TEMP 98.3; BMI 74.2
--- NOTE | 2019-08-30 21:10 | PDOC ---
Attending Attestation - Resident Resident Name: Carolin Lucia - ED Attending Attestation I have performed the following: I have examined & evaluated the patient, The case was reviewed & discussed with the resident, I agree w/resident's findings & plan - HPI HPI: 08/30/19 23:00 Pt comes with palpitations. States that he exercises every day at 6AM; goes for a 6 km walk. Now with palpitations that frighten him. He has had an episode of palpitations 10 days prior. States that he takes his cozaar and asa as prescribed. He eats healthfully; he is retired from the [employer] since JUNE. Wonders if this is stress and depression. He is neither suicidal nor homicidal. He is alone at home, as he cannot travel to his wofe in [place]. Pt states that he is stressed with living alone, being retired and now with the palpitations. Pt has EF of 60-65% on his most recent echocardiogram and he has mild tricuspid regurg. Pt has normal stress test as of 2 years ago. No PMHx other than HTN. - Physicial Exam PE: 08/30/19 23:04 Normal exam 08/30/19 23:04 agree with resident - Medical Decision Making 08/30/19 23:04 Pt has normal labs and normal EKG, normal CXR and normal vitals. Normal exam He has an existing appointment with his mobile health vehicle operator in 3 days. I have suggested that he call cards an request a holter monitor to be placed at that appointment. Pt is stable for discharge [facility] Discharge - Discharge Information Problems reviewed: Yes Clinical Impression/Diagnosis: Palpitations Condition: Improved Disposition: HOME - Follow up/Referral Referrals: Sagar Tierney MD [Staff Physician] - Imelda Mcguire MD [Primary Care Provider] - - Patient Discharge Instructions Patient Printed Discharge Instructions: DI for Ambulatory Cardiac Monitoring - Post Discharge Activity
--- NOTE | 2019-08-30 21:26 | PDOC ---
History of Present Illness <Arely Mo - Last Filed: 08/30/19 22:59> <Carolin Lucia - Last Filed: 08/30/19 23:42> - General Chief Complaint: Palpitations Stated Complaint: HEART PALPITATIONS Time Seen by Provider: 08/30/19 21:07 - History of Present Illness Initial Comments: 63 yo male with PMH of HTN, HLD, PILI presents with 1 day history of palpitations. Palpations occur in episodes that last 15-20 minutes and have been on and off for the last few weeks. The episodes do not have any triggers and are not associated with exertion. He was seen 10 days ago in the ED for chest pain and had a negative EKG, troponins, and echo (65%EF). Last stress test was 2 years ago which was negative for ACS. He currently asymptomatic and denies CP, SOB, cough, rhinorrea, nausea, vomiting. 08/30/19 21:26 (Carolin Lucia) Past History <Josy Moreen - Last Filed: 08/30/19 22:59> - Medical History Anemia: No Asthma: No Cancer: No Cardiac Disorders: Yes (arrhythmia) CVA: No COPD: No CHF: No Dementia: No Diabetes: No GI Disorders: Yes (DIVERTICULITIS) Disorders: Yes (kidney stones, BPH) HTN: Yes Hypercholesterolemia: Yes Liver Disease: No Seizures: No Thyroid Disease: No - Surgical History Abdominal Surgery: No Appendectomy: No Cardiac Surgery: No Cholecystectomy: No Lung Surgery: No Neurologic Surgery: No Orthopedic Surgery: No - Immunization History Immunization Up to Date: Yes - Psycho-Social/Smoking History Smoking History: Never smoked Have you smoked in the past 12 months: No - Substance Abuse Hx (Audit-C & DAST Scrn) How often the patient has a drink containing alcohol: 2-4 times / month Number of drinks the patient has on a typical day: 1 or 2 How often the patient has six or more drinks on one occasion: Less than monthly Score: In Men: 4 or > Positive; In Women: 3 or > Positive: 3 Screen Result (Pos requires Nsg. Audit-10AR): Negative In the last yr the pt used illegal drug/Rx for NonMed reason: No Score: Yes response is considered Positive: 0 Screen Result (Positive result requires Nsg. DAST-10): Negative <KhariCarolin - Last Filed: 08/30/19 23:42> - Medical History Allergies/Adverse Reactions: Allergies Allergy/AdvReac Type Severity Reaction Status Date / Time No Known Allergies Allergy Verified 01/23/17 02:20 Home Medications: Ambulatory Orders Aspirin 81 mg PO DAILY 08/20/19 Atorvastatin Ca [Lipitor] 10 mg PO HS 08/20/19 Losartan Potassium 100 mg PO DAILY #30 tablet 08/21/19 Cardiac Specific PMH - Complaint Specific PMHX Pacemaker: Yes <AnnikagiancarloCarolin - Last Filed: 08/30/19 23:42> Review of Systems - Review of Systems Able to Perform ROS?: Yes Constitutional: No: Chills, Fever, Malaise, Weakness HEENTM: No: Blurred Vision, Double Vision Respiratory: No: Cough, Orthopnea, Shortness of Breath Cardiac (ROS): Yes: Irregular Heart Rate, Palpitations. No: Chest Pain, Syncope, Chest Tightness ABD/GI: No: Abdominal Distended, Constipated, Diarrhea, Nausea, Vomiting : No: Dysuria, Hematuria Musculoskeletal: Yes: Back Pain. No: Muscle Pain, Muscle Weakness Integumentary: No: Bruising, Erythema, Lesions Neurological: No: Headache, Numbness, Paresthesia, Tingling, Tremors, Weakness Psychiatric: No: Anxiety, Depression, Mood Swings Endocrine: No: Intolerance to Cold, Intolerance to Heat, Unexplained Weight Gain Hematologic/Lymphatic: No: Anemia, Bleeding Diathesis <Carolin Lucia - Last Filed: 08/30/19 23:42> *Physical Exam - Physical Exam General Appearance: Yes: Appropriately Dressed. No: Apparent Distress HEENT: positive: Normal Voice Respiratory/Chest: positive: Lungs Clear, Normal Breath Sounds. negative: Respiratory Distress Cardiovascular: positive: Regular Rhythm, Regular Rate, S1, S2 Gastrointestinal/Abdominal: positive: Normal Bowel Sounds, Flat, Soft. negative: Tender Musculoskeletal: positive: Normal Inspection Extremity: positive: Normal Range of Motion Integumentary: positive: Normal Color, Dry, Warm Neurologic: positive: Fully Oriented, Alert, Normal Mood/Affect <AnnikagiancarloCarolin - Last Filed: 08/30/19 23:42> - Vital Signs Last Vital Signs Temp Pulse Resp BP Pulse Ox 98.3 F 76 18 124/78 99 08/30/19 20:47 08/30/19 23:04 08/30/19 23:04 08/30/19 23:04 08/30/19 23:04 Heart Score/ECG Review - History History: Slightly suspicious - Electrocardiogram EKG: Normal - Age Age: >/= 65 - Risk Factors Risk Factors Heart Score: Yes Hx Hypercholesterolemia, Yes Hx Hypertension - Troponin Troponin: </= normal limit <Carolin Lucia - Last Filed: 08/30/19 23:42> ED Treatment Course - LABORATORY CBC & Chemistry Diagram: 08/30/19 22:00 08/30/19 22:00 <Arely Mo - Last Filed: 08/30/19 22:59> - LABORATORY CBC & Chemistry Diagram: 08/30/19 22:00 08/30/19 22:00 <Carolin Lucia - Last Filed: 08/30/19 23:42> - ADDITIONAL ORDERS Additional order review: Laboratory Results 08/30/19 08/30/19 22:00 22:00 PT with INR 11.60 INR 0.98 PTT (Actin FS) 34.5 Sodium 140 Potassium 4.1 Chloride 107 Carbon Dioxide 27 Anion Gap 6 L BUN 13.3 Creatinine 1.0 Est GFR (CKD-EPI)AfAm 93.08 Est GFR (CKD-EPI)NonAf 80.31 Random Glucose 110 H Calcium 8.9 Total Bilirubin 0.5 AST 34 ALT 79 H Alkaline Phosphatase 88 Creatine Kinase 189 Creatine Kinase Index No Result Required. CK-MB (CK-2) < 1.0 Troponin I < 0.02 Total Protein 7.7 Albumin 4.2 08/30/19 22:00 RBC 5.29 MCV 93.3 MCHC 33.0 RDW 14.1 MPV 8.9 - RADIOLOGY Radiology Studies Ordered: Category Date Time Status CHEST X-RAY PORTABLE* [RAD] Stat Radiology 08/30/19 21:28 Taken Medical Decision Making <Carolin Lucia - Last Filed: 08/30/19 23:42> - Medical Decision Making 63 yo male male with PMH of htn, hld, pili presents with episodes of palpation l asting ~15 min. He is currently assymptomatic and denies CP, SOB, nausea, vomiting. EKG was benign and troponins were negative. He had an echo 10 days ago showing 65% EF. CXR was negative. Pt has a cardiology appointment within the next week where I suggested discussing a holter monitor to identify any arrhythmias that may occur. 08/30/19 23:39 (Carolin Lucia) Discharge - Discharge Information Problems reviewed: Yes - Admission No <Arely Mo - Last Filed: 08/30/19 22:59> - Discharge Information Problems reviewed: Yes - Admission No <Carolin Lucia - Last Filed: 08/30/19 23:42> - Discharge Information Clinical Impression/Diagnosis: Palpitations Condition: Stable - Follow up/Referral Referrals: Imelda Mcguire MD [Primary Care Provider] - Sagar Tierney MD [Staff Physician] - - Patient Discharge Instructions Patient Printed Discharge Instructions: DI for Ambulatory Cardiac Monitoring Additional Instructions: Follow up with cardiology. Return to ED if symptoms worsen.
[2019-08-30 22:11] LABS: HEMATOCRIT 49.3 % (35.4-49); HEMOGLOBIN 16.3 GM/dL (11.7-16.9); MCH 30.8 pg (25.7-33.7); MEAN CELL VOLUME 93.3 fl (80-96); MEAN PLT VOLUME 8.9 fl (7.5-11.1); PLATELET COUNT 199 K/MM3 (134-434); RBC 5.29 M/mm3 (4.00-5.60); RDW 14.1 % (11.9-15.9); WHITE BLOOD COUNT 6.9 K/mm3 (4.0-10.0)
[2019-08-30 22:20] LABS: INR 0.98 (0.83-1.09); PROTHROMBIN TIME (PATIENT) 11.6 SEC (9.7-13.0)
[2019-08-30 22:23] LABS: ACTIVATED PTT 34.5 SECONDS (25.2-36.5)
[2019-08-30 22:54] LABS: ALBUMIN 4.2 g/dl (3.4-5.0); ALK PHOS 88 U/L (45-117); ANION GAP 6 MMOL/L (8-16); BILIRUBIN,TOTAL 0.5 mg/dL (0.2-1); BLOOD UREA NITROGEN 13.3 mg/dL (7-18); CALCIUM 8.9 mg/dL (8.5-10.1); CHLORIDE 107 mmol/L (98-107); CO2 27 mmol/L (21-32); GLUCOSE,RANDOM 110 mg/dL (74-106); POTASSIUM 4.1 mmol/L (3.5-5.1); SGOT/AST 34 U/L (15-37); SGPT/ALT 79 U/L (13-61); SODIUM 140 mmol/L (136-145); TOT PROT 7.7 g/dl (6.4-8.2)
[2019-08-30 23:05] VITALS: BP 124/78; PULSE 76
--- NOTE | 2019-09-01 12:09 | EKG ---
Test Reason : Blood Pressure : / mmHG Vent. Rate : 075 BPM Atrial Rate : 075 BPM P-R Int : 180 ms QRS Dur : 086 ms QT Int : 388 ms P-R-T Axes : 050 042 044 degrees QTc Int : 433 ms SINUS RHYTHM WITH FREQUENT PREMATURE VENTRICULAR COMPLEXES OTHERWISE NORMAL ECG WHEN COMPARED WITH ECG OF 20-AUG-2019 20:05, NO SIGNIFICANT CHANGE WAS FOUND Confirmed by Germán Calvin ([id number]) on 09/01/2019 12:08:58 PM Referred By: Confirmed By:Germán Calvin
== END 2019-08-30 23:05 | disposition home or self-care (01) ==
LOC: JER 20:38 → SUPCPDRO 20:38 → JER 23:05
DX: R00.2 Palpitations (principal)
CPT/HCPCS: 36415; 71045-TC-FY; 80053; 82550; 82553; 84484; 85027; 85610; 85730; 93005; 93010; 99285-25

== ENCOUNTER 2019-10-29 10:13 | Emergency (ER) | payer OTHER ==
[2019-10-29 10:29] VITALS: TEMP 98.2; BMI 32.3
[2019-10-29] MEDS ORDERED: SODIUM CHLORIDE 1,000 ML IV STA (10:42)
[2019-10-29] MEDS ORDERED: ACETAMINOPHEN 1000 MG/100 ML VIAL (NON FORMULARY) IVPB ONE (10:42)
--- NOTE | 2019-10-29 10:42 | PDOC ---
History of Present Illness - General Chief Complaint: Back Pain Stated Complaint: LWR BACK PAIN (EXTREME) Time Seen by Provider: 10/29/19 10:32 History Source: Patient - History of Present Illness Occurred: reports: other Pain Location: reports: back Past History - Medical History Allergies/Adverse Reactions: Allergies Allergy/AdvReac Type Severity Reaction Status Date / Time No Known Allergies Allergy Verified 01/23/17 02:20 Home Medications: Ambulatory Orders Aspirin 81 mg PO DAILY 08/20/19 Atorvastatin Ca [Lipitor] 10 mg PO HS 08/20/19 Losartan Potassium 100 mg PO DAILY #30 tablet 08/21/19 Acetaminophen [Tylenol -] 1,000 mg PO Q6H #30 tablet 10/29/19 Cyclobenzaprine HCl [Flexeril 10 mg] 10 mg PO HS #9 tablet 10/29/19 Anemia: No Asthma: No Cancer: No Cardiac Disorders: Yes (arrhythmia) CVA: No COPD: No CHF: No Dementia: No Diabetes: No GI Disorders: Yes (DIVERTICULITIS) Disorders: Yes (kidney stones, BPH) HTN: Yes Hypercholesterolemia: Yes Liver Disease: No Seizures: No Thyroid Disease: No - Surgical History Abdominal Surgery: No Appendectomy: No Cardiac Surgery: No Cholecystectomy: No Lung Surgery: No Neurologic Surgery: No Orthopedic Surgery: No - Immunization History Immunization Up to Date: Yes - Psycho-Social/Smoking History Smoking History: Never smoked Have you smoked in the past 12 months: No Information on smoking cessation initiated: No - Substance Abuse Hx (Audit-C & DAST Scrn) How often the patient has a drink containing alcohol: Never Score: In Men: 4 or > Positive; In Women: 3 or > Positive: 0 Screen Result (Pos requires Nsg. Audit-10AR): Negative In the last yr the pt used illegal drug/Rx for NonMed reason: No Score: Yes response is considered Positive: 0 Screen Result (Positive result requires Nsg. DAST-10): Negative Review of Systems - Review of Systems Constitutional: No: Chills, Fever, Unexplained wgt Loss ABD/GI: No: Nausea, Vomiting, Abdominal cramping : Yes: Flank Pain. No: Dysuria, Frequency, Hematuria, Testicular Mass, Testicular Swelling, Testicular Pain Musculoskeletal: Yes: Back Pain Neurological: No: Numbness, Tingling, Weakness *Physical Exam - Vital Signs Last Vital Signs Temp Pulse Resp BP Pulse Ox 98.2 F 79 17 103/70 99 10/29/19 10:25 10/29/19 10:25 10/29/19 10:25 10/29/19 10:10/29/19 10:25 - Physical Exam General Appearance: Yes: Appropriately Dressed. No: Apparent Distress HEENT: positive: Normal Voice Neck: positive: Supple Gastrointestinal/Abdominal: positive: Soft. negative: Tender Musculoskeletal: positive: Vertebral Tenderness (to R mid back). negative: CVA Tenderness Extremity: positive: Normal Inspection Integumentary: positive: Dry, Warm Neurologic: positive: Fully Oriented, Alert, Normal Mood/Affect, Motor Strength 06/30 ED Treatment Course - LABORATORY CBC & Chemistry Diagram: 10/29/19 11:10/29/19 11:02 Medical Decision Making - Medical Decision Making 10/29/19 10:36 63 y/o M, h/o HLD, prostate ca s/p XRT 3 years ago, here with persistent severe mid to lower back pain x2 weeks, mostly to R side and worse w/ movement. Was seen in his urologist's office last week when patient was also complaining of malodorous urine. States urine was collected and he was started on cefuroxime and also given tramadol. States he has not taken the tramadol as he does not like strong medications. States urine odor has improved and has no dysuria frequency, hematuria, rectal pain, nausea, vomiting fever or chills. No sensory changes, incontinence, saddle anesthesia or LE weakness. No recent unexplained weight loss. No recent trauma. Patient states he did speak to his urologist regarding ongoing back pain and states he was told to come to the ED for CAT scan see exam R flank pain R/o pyelo as currently on abx for malodorous UA vs MSK, will r/o lytic lesion to spine given h/o prior malignancy Exam only remarkable for ttp to R mid back/flank -pain control -labs -XR -CT -dispo pending 10/29/19 11:00 Case d/w Dr Robert, pt's urologist, who agrees w/ w/u. States ua was neg in office last week but decided to start patient on antibiotics given malodorous urine. States no urine culture was sent. would like to be contacted with disposition 10/29/19 14:39 CT read as neg for acute pathology, including hydro or pyelo. A previous 1 mm right obstructive stone seen on prior CT is no longer seen today per report. B/l adrenal adenomas noted. Patient informed of lab results and CT and given copy of records. States pain has since improved with meds. DC to continue anti biotics given to him by urology and to follow-up with MD. Dr. Robert contacted w/ results and will continue to f/u w/ pt Discharge - Discharge Information Problems reviewed: Yes Clinical Impression/Diagnosis: Back pain Qualifiers: Back pain location: low back pain Chronicity: acute Back pain laterality: unspecified Sciatica presence: without sciatica Qualified Code(s): M54.5 - Low back pain Condition: Improved Disposition: HOME - Additional Discharge Information Prescriptions: Cyclobenzaprine HCl [Flexeril 10 mg] 10 mg PO HS #9 tablet Acetaminophen [Tylenol -] 1,000 mg PO Q6H #30 tablet - Follow up/Referral Referrals: Imelda Mcguire MD [Primary Care Provider] - - Patient Discharge Instructions Patient Printed Discharge Instructions: Low Back Pain Additional Instructions: Your blood work and CAT scan were normal today. Continue antibiotics as given to you by your urologist. Take pain medications as directed Continue to follow-up with Dr. Robert and your primary doctor - Post Discharge Activity
[2019-10-29] MEDS ORDERED: ACETAMINOPHEN INJECTION 100 ML IVPB ONE (11:11)
[2019-10-29 11:32] LABS: BASO % 0.7 % (0-2.0); HEMATOCRIT 47.2 % (35.4-49); HEMOGLOBIN 15.7 GM/dL (11.7-16.9); LYMPH % 32.8 % (8-40); MCHC 33.3 g/dl (32.0-35.9); MEAN CELL VOLUME 93.3 fl (80-96); MEAN PLT VOLUME 9.5 fl (7.5-11.1); MONO % 12.2 % (3.8-10.2); NEUT % 50.3 % (42.8-82.8); PLATELET COUNT 193 K/MM3 (134-434); RBC 5.06 M/mm3 (4.00-5.60); RDW 13.9 % (11.9-15.9)
[2019-10-29 11:43] LABS: URINE APPEARANCE CLEAR; URINE BILIRUBIN NEGATIVE (NEGATIVE); URINE COLOR YELLOW; URINE GLUCOSE (UA) NEGATIVE (NEGATIVE); URINE KETONE NEGATIVE (NEGATIVE); URINE LEUK ESTERASE NEGATIVE (NEGATIVE); URINE NITRITE NEGATIVE (NEGATIVE); URINE PROTEIN NEGATIVE (NEGATIVE); URINE UROBILINOGEN 0.2 mg/dL (0.2-1.0)
[2019-10-29 12:00] LABS: ALBUMIN 4.1 g/dl (3.4-5.0); BILIRUBIN,TOTAL 0.8 mg/dL (0.2-1); BLOOD UREA NITROGEN 13.9 mg/dL (7-18); CALCIUM 9.1 mg/dL (8.5-10.1); CREATININE 1.3 mg/dL (0.55-1.3); POTASSIUM 4.6 mmol/L (3.5-5.1); TOT PROT 7.4 g/dl (6.4-8.2)
[2019-10-29 15:04] VITALS: BP 115/70; PULSE 57
== END 2019-10-29 14:55 | disposition home or self-care (01) ==
LOC: JER 10:13
PROC: 3E0333Z Introduction of Anti-inflammatory into Peripheral Vein, Percutaneous Approach (ICD-10-PCS; principal; 2019-10-29)
PROC: 3E0337Z Introduction of Electrolytic and Water Balance Substance into Peripheral Vein, Percutaneous Approach (ICD-10-PCS; 2019-10-29)
DX: M54.5 Low back pain (principal)
CPT/HCPCS: 36415; 72070-TC-FY; 72100-TC-FY; 74177-TC; 80053; 81003; 85025; 87086; 99285-25; J0131; Q9967

== ENCOUNTER 2020-08-06 04:53 | Day surgery (SDC) | payer OTHER ==
[2020-08-04 14:55] VITALS: BMI 33.4
[2020-08-06 10:44] VITALS: TEMP 97.6
[2020-08-06 11:22] VITALS: BP 108/72; PULSE 60
== END 2020-08-06 11:23 | disposition home or self-care (01) ==
LOC: JASU-ENDO 04:53
PROVIDERS: ATTEND Internal Medicine Gastroenterology
PROC: 0DBM8ZX Excision of Descending Colon, Via Natural or Artificial Opening Endoscopic, Diagnostic (ICD-10-PCS; 2020-08-06)
PROC: 0DBL8ZX Excision of Transverse Colon, Via Natural or Artificial Opening Endoscopic, Diagnostic (ICD-10-PCS; 2020-08-06)
PROC: 0DBL8ZX Excision of Transverse Colon, Via Natural or Artificial Opening Endoscopic, Diagnostic (ICD-10-PCS; principal; 2020-08-06 10:00)
DX: Z12.11 Encounter for screening for malignant neoplasm of colon (principal); D12.4 Benign neoplasm of descending colon; D12.3 Benign neoplasm of transverse colon; K57.30 Diverticulosis of large intestine without perforation or abscess without bleeding; K64.8 Other hemorrhoids; Z86.010 Personal history of colon polyps
CPT/HCPCS: 88305-TC

== ENCOUNTER 2021-12-06 14:25 | Inpatient (IN) | payer OTHER ==
[2021-12-06 17:40] LABS: BASO % 0.5 % (0-2.0); EOS % 3.5 % (0-4.5); HEMATOCRIT 46.8 % (35.4-49); HEMOGLOBIN 15.4 GM/dL (11.7-16.9); LYMPH % 20.4 % (8-40); MCH 30.8 pg (25.7-33.7); MEAN CELL VOLUME 93.4 fl (80-96); MEAN PLT VOLUME 8.4 fl (7.5-11.1); MONO % 12.5 % (3.8-10.2); NEUT % 63.1 % (42.8-82.8); PLATELET COUNT 205 10^3/uL (134-434); RDW 15.1 % (11.9-15.9); WHITE BLOOD COUNT 6.4 K/mm3 (4.0-10.0)
[2021-12-06 18:02] LABS: ALBUMIN 3.4 g/dl (3.4-5.0); BLOOD UREA NITROGEN 12.8 mg/dL (7-18); CALCIUM 8.5 mg/dL (8.5-10.1)
[2021-12-06 18:05] LABS: CREATININE 0.8 mg/dL (0.55-1.3)
[2021-12-06 18:07] LABS: BILIRUBIN,TOTAL 0.5 mg/dL (0.2-1); TOT PROT 6.6 g/dl (6.4-8.2)
[2021-12-06 20:26] LABS: INR 0.99 (0.83-1.09); PROTHROMBIN TIME (PATIENT) 11.4 SEC (9.7-13.0)
[2021-12-06 20:29] LABS: ACTIVATED PTT 34.1 SECONDS (25.2-36.5)
[2021-12-06 20:49] LABS: BASO % 0.8 % (0-2.0); EOS % 3.5 % (0-4.5); HEMATOCRIT 45.4 % (35.4-49); HEMOGLOBIN 15.3 GM/dL (11.7-16.9); LYMPH % 21.7 % (8-40); MCH 31.2 pg (25.7-33.7); MCHC 33.8 g/dl (32.0-35.9); MEAN CELL VOLUME 92.5 fl (80-96); MEAN PLT VOLUME 8.3 fl (7.5-11.1); MONO % 10.5 % (3.8-10.2); NEUT % 63.5 % (42.8-82.8); PLATELET COUNT 205 10^3/uL (134-434); RDW 15.2 % (11.9-15.9); WHITE BLOOD COUNT 7.2 K/mm3 (4.0-10.0)
[2021-12-06] MEDS ORDERED: SODIUM CHLORIDE 1,000 ML IV SCH (21:30)
[2021-12-07 00:59] LABS: BASO % 0.7 % (0-2.0); EOS % 3.4 % (0-4.5); HEMATOCRIT 44.1 % (35.4-49); HEMOGLOBIN 14.8 GM/dL (11.7-16.9); LYMPH % 32.9 % (8-40); MCHC 33.5 g/dl (32.0-35.9); MEAN CELL VOLUME 92.5 fl (80-96); MEAN PLT VOLUME 7.8 fl (7.5-11.1); PLATELET COUNT 201 10^3/uL (134-434); RBC 4.76 M/mm3 (4.00-5.60); RDW 15.1 % (11.9-15.9)
[2021-12-07] MEDS: SODIUM CHLORIDE 1,000 ML IV SCH ×2 (01:00→12:24)
[2021-12-07 07:32] LABS: BLOOD UREA NITROGEN 13.5 mg/dL (7-18); MAGNESIUM 2.1 mg/dL (1.8-2.4)
[2021-12-07 07:35] LABS: CREATININE 0.7 mg/dL (0.55-1.3)
[2021-12-07 07:36] LABS: TOT PROT 6.1 g/dl (6.4-8.2)
[2021-12-07 07:37] LABS: BILIRUBIN,TOTAL 0.7 mg/dL (0.2-1)
[2021-12-07 08:18] LABS: BASO % 0.7 % (0-2.0); EOS % 3.8 % (0-4.5); HEMATOCRIT 43.2 % (35.4-49); HEMOGLOBIN 14.2 GM/dL (11.7-16.9); LYMPH % 30.8 % (8-40); MCH 30.3 pg (25.7-33.7); MCHC 32.8 g/dl (32.0-35.9); MEAN CELL VOLUME 92.5 fl (80-96); MEAN PLT VOLUME 8.8 fl (7.5-11.1); MONO % 10.8 % (3.8-10.2); NEUT % 53.9 % (42.8-82.8); PLATELET COUNT 204 10^3/uL (134-434); RBC 4.67 M/mm3 (4.00-5.60); RDW 14.9 % (11.9-15.9); WHITE BLOOD COUNT 5.4 K/mm3 (4.0-10.0)
[2021-12-07] MEDS: LOSARTAN POTASSIUM 50 MG TABLET PO SCH (10:21)
[2021-12-07 12:21] VITALS: BMI 31.5
[2021-12-07] MEDS ORDERED: PEG 3350/NA SULF BICARB CL/KCL 4000 ML SOLN.RECON PO ONE (17:54)
[2021-12-07] MEDS ORDERED: BISACODYL 5 MG TABLET.DR (FP) PO ONE (17:54)
[2021-12-07 21:58] LABS: BASO % 0.5 % (0-2.0); EOS % 3.5 % (0-4.5); HEMATOCRIT 45.2 % (35.4-49); HEMOGLOBIN 14.9 GM/dL (11.7-16.9); LYMPH % 27.2 % (8-40); MCH 30.6 pg (25.7-33.7); MEAN CELL VOLUME 92.7 fl (80-96); MEAN PLT VOLUME 8.8 fl (7.5-11.1); MONO % 9.5 % (3.8-10.2); NEUT % 59.3 % (42.8-82.8); PLATELET COUNT 229 10^3/uL (134-434); RBC 4.88 M/mm3 (4.00-5.60); WHITE BLOOD COUNT 6.6 K/mm3 (4.0-10.0)
[2021-12-08 07:58] LABS: HEMATOCRIT 38.3 % (35.4-49); HEMOGLOBIN 13.1 GM/dL (11.7-16.9); MCH 31.6 pg (25.7-33.7); MCHC 34.2 g/dl (32.0-35.9); MEAN CELL VOLUME 92.4 fl (80-96); MEAN PLT VOLUME 8.2 fl (7.5-11.1); PLATELET COUNT 192 10^3/uL (134-434); RBC 4.14 M/mm3 (4.00-5.60); RDW 14.8 % (11.9-15.9); WHITE BLOOD COUNT 5.5 K/mm3 (4.0-10.0)
[2021-12-08 08:28] LABS: BLOOD UREA NITROGEN 12.4 mg/dL (7-18); CALCIUM 7.8 mg/dL (8.5-10.1)
[2021-12-08 08:31] LABS: CREATININE 0.6 mg/dL (0.55-1.3)
[2021-12-08 08:34] LABS: BILIRUBIN,TOTAL 1.5 mg/dL (0.2-1); TOT PROT 5.6 g/dl (6.4-8.2)
[2021-12-08] MEDS: LOSARTAN POTASSIUM 50 MG TABLET PO SCH ×2 (09:03→09:26)
[2021-12-08] MEDS: SODIUM CHLORIDE 1,000 ML IV SCH (18:40)
[2021-12-09] MEDS: SODIUM CHLORIDE 1,000 ML IV SCH (06:40)
[2021-12-09 07:42] LABS: HEMATOCRIT 39.2 % (35.4-49); HEMOGLOBIN 12.9 GM/dL (11.7-16.9); MCH 30.6 pg (25.7-33.7); MCHC 32.9 g/dl (32.0-35.9); MEAN PLT VOLUME 8.6 fl (7.5-11.1); PLATELET COUNT 200 10^3/uL (134-434); RBC 4.21 M/mm3 (4.00-5.60); RDW 14.6 % (11.9-15.9); WHITE BLOOD COUNT 5.5 K/mm3 (4.0-10.0)
[2021-12-09 08:02] LABS: ALBUMIN 3.1 g/dl (3.4-5.0)
[2021-12-09 08:04] LABS: BLOOD UREA NITROGEN 10.8 mg/dL (7-18); CALCIUM 8.1 mg/dL (8.5-10.1); MAGNESIUM 2.1 mg/dL (1.8-2.4)
[2021-12-09 08:06] LABS: CREATININE 0.7 mg/dL (0.55-1.3); PHOSPHOROUS 3.4 mg/dL (2.5-4.9)
[2021-12-09 08:08] LABS: BILIRUBIN,TOTAL 0.6 mg/dL (0.2-1); TOT PROT 5.7 g/dl (6.4-8.2)
[2021-12-09] MEDS: LOSARTAN POTASSIUM 50 MG TABLET PO SCH (09:33)
[2021-12-09 10:25] VITALS: BP 118/71; PULSE 87; RESP 18; TEMP 98.7
== END 2021-12-09 13:31 | disposition home or self-care (01) | DRG 379 ==
LOC: JER 14:25 → JERBED 18:47 → J4W 12-07 08:51
PROVIDERS: ADMIT Internal Medicine; ATTEND Internal Medicine
PROC: 0DBL8ZZ Excision of Transverse Colon, Via Natural or Artificial Opening Endoscopic (ICD-10-PCS; principal; 2021-12-08 13:00)
DX: K57.33 Diverticulitis of large intestine without perforation or abscess with bleeding (principal); I10 Essential (primary) hypertension; E78.5 Hyperlipidemia, unspecified; C61 Malignant neoplasm of prostate; G47.33 Obstructive sleep apnea (adult) (pediatric); N40.0 Benign prostatic hyperplasia without lower urinary tract symptoms; R73.03 Prediabetes; K76.0 Fatty (change of) liver, not elsewhere classified; K64.8 Other hemorrhoids; K63.5 Polyp of colon
CPT/HCPCS: 36415; 71045-TC-FY; 74177-TC; 80053; 82272; 83735; 84100; 85025; 85027; 85610; 85730; 86850; 86900; 86901; 93005; 93010; 99285-25; C9803-CS; Q9967; U0003; U0005